=== PATIENT | male | born 1935 | race Asian ===

== ENCOUNTER 2020-03-11 08:43 | Outpatient (CLI) | payer OTHER ==
[~2020-03-11] VITALS: Ht 170.2 cm; Wt 54.0 kg
== END 2020-03-11 18:57 | disposition home or self-care (01) ==
LOC: NM 08:43
PROVIDERS: ATTEND Specialist
DX: R07.89 Other chest pain (principal); R06.02 Shortness of breath
CPT/HCPCS: A9500; J2785